=== PATIENT | male | born 1945 | race Caucasian/White ===

== ENCOUNTER → 2020-12-18 | Outpatient (CLI) | payer OTHER ==
[2020-12-18 19:35] LABS: BASOPHILS ABSOLUTE AUTO 0.05 K/mm3 (0.00-0.23); BASOPHILS PERCENT AUTO 1 % (0-2); EOSINOPHILS ABSOLUTE AUTO 0.16 K/mm3 (0.00-0.68); EOSINOPHILS PERCENT AUTO 3 % (0-6); Hemoglobin 16.1 g/dL (13.5-17.5); IMMATURE GRAN ABSOLUTE AUTO 0.01 K/mm3 (0.00-0.10); IMMATURE GRAN PERCENT AUTO 0 % (0-1); LYMPHOCYTES ABSOLUTE AUTO 1.71 K/mm3 (0.84-5.20); LYMPHOCYTES PERCENT AUTO 28 % (21-46); MONOCYTES ABSOLUTE AUTO 0.72 K/mm3 (0.16-1.47); MONOCYTES PERCENT AUTO 12 % (4-13); Mean Corpuscular HGB Conc 34.3 g/dL (31.5-36.5); Mean Corpuscular Volume 93 fL (80-100); Mean Platelet Volume 10.1 fL (9.1-12.4); NEUTROPHILS ABSOLUTE AUTO 3.44 K/mm3 (1.96-9.15); NEUTROPHILS PERCENT AUTO 57 % (41-73); Platelet Count 185 K/mm3 (150-400); RDW Coefficient Variation 12.8 % (11.7-14.2); RDW Standard Deviation 44.1 fL (35.1-46.3); Red Blood Cell Count 5.03 M/mm3 (4.30-5.90); White Blood Cell Count 6.09 K/mm3 (4.00-11.30)
[2020-12-18 20:20] LABS: Alanine Aminotransfer (ALT/SGP 29 U/L (12-78); Albumin, Blood 3.8 g/dL (3.4-5.0); Albumin/Globulin Ratio 1.3 (0.8-1.8); Alk Phos 99 U/L (50-136); Anion Gap 9 mmol/L (6-16); Aspartate Aminotrans (AST/SGOT 21 U/L (12-37); Bilirubin, Total 0.6 mg/dL (0.1-1.0); Blood Urea Nitrogen 28 mg/dL (8-24); Bun/Creatinine Ratio 28.6 (12.0-20.0); CHOL/HDL RATIO 2.6; CO2, Blood 26 mmol/L (21-32); Calcium, Blood 8.8 mg/dL (8.5-10.1); Chloride, Blood 107 mmol/L (98-108); Cholesterol 198 mg/dL (50-200); Creatinine, Blood 0.98 mg/dL (0.60-1.20); Glomerular Filtration Rate >60 (60-); Glucose, Blood 107 mg/dL (70-99); HDL Cholesterol 76 mg/dL (>39); LDL/HDL RATIO 1.1; Low Density Lipoprotein Chol 86 mg/dL (0-110); Potassium, Blood 4.2 mmol/L (3.5-5.5); Sodium, Blood 142 mmol/L (136-145); Thyroid Stimulating Hormone 0.813 uIU/mL (0.360-4.800); Total Protein, Blood 6.8 g/dL (6.4-8.2); Triglycerides 178 mg/dL (30-160); Very Low Density Lipoprot Chol 35 mg/dL (6-32)
== END ==
LOC: LAB SHORT 18:12 → PLD 18:12
PROVIDERS: Registered Nurse
DX: Z11.59 Encounter for screening for other viral diseases (principal); E11.9 Type 2 diabetes mellitus without complications; E78.5 Hyperlipidemia, unspecified; R53.83 Other fatigue
CPT/HCPCS: 80053; 80061; 83036; 84443; 85025; 86803

== ENCOUNTER 2023-09-28 11:52 | Day surgery (SDC) | payer OTHER ==
[~2023-09-28] VITALS: Ht 175.3 cm; Wt 55.7 kg
[~2023-09-28 11:52] MED LIST: ATOR10; Aspir 8181 MG PO; LEVSOD100 PO; LIDO700A20 TOP; MELA3; METFORMIN ER1000 M1 PO; NOVOLOG FL100 UNIT/3 SC; OMEP20ER PO; VITAMIN D325 MC3; VOLTAREN ARTHRI20 GM TOP
[2023-09-28] MEDS ORDERED: ALOGLIPTIN25 M1 (12:18)
[2023-09-28] MEDS ORDERED: TAMS.4ER PO (12:18)
--- NOTE | 2023-09-28 12:30 | NUR ---
09/28/23 1230 Claudia Guzmán AT 1216 PLEDGET AT 1217
[2023-09-28 13:28] VITALS: BP 118/70
== END 2023-09-28 13:43 | disposition home or self-care (01) ==
LOC: ORSCSDS 11:52
PROVIDERS: Student in an Organized Health Care Education/Training Program
PROC: 08RJ3JZ Replacement of Right Lens with Synthetic Substitute, Percutaneous Approach (ICD-10-PCS; principal; 2023-09-28 13:45)
DX: E11.36 Type 2 diabetes mellitus with diabetic cataract (principal); H25.13 Age-related nuclear cataract, bilateral; H21.81 Floppy iris syndrome; Z85.51 Personal history of malignant neoplasm of bladder; E78.5 Hyperlipidemia, unspecified; Z79.4 Long term (current) use of insulin; Z87.891 Personal history of nicotine dependence; Z79.84 Long term (current) use of oral hypoglycemic drugs; Z79.899 Other long term (current) drug therapy
CPT/HCPCS: 82947; J2250; J3010; J7040; V2632

== ENCOUNTER 2023-10-19 07:39 | Day surgery (SDC) | payer OTHER ==
[~2023-10-19] VITALS: Ht 144.8 cm; Wt 56.5 kg
[~2023-10-19 07:39] MED LIST changes: +ALOGLIPTIN25 M1; +TAMS.4ER PO
--- NOTE | 2023-10-19 08:11 | NUR ---
10/19/23 0811 ANN BYRNE: [id number] REYNOLD: [id number]
[2023-10-19 09:23] VITALS: BP 113/75
== END 2023-10-19 09:38 | disposition home or self-care (01) ==
LOC: ORSCSDS 07:39
PROVIDERS: Student in an Organized Health Care Education/Training Program
PROC: 08RK3JZ Replacement of Left Lens with Synthetic Substitute, Percutaneous Approach (ICD-10-PCS; principal; 2023-10-19 09:00)
DX: E11.36 Type 2 diabetes mellitus with diabetic cataract (principal); H25.12 Age-related nuclear cataract, left eye; H21.81 Floppy iris syndrome; Z96.1 Presence of intraocular lens; Z85.51 Personal history of malignant neoplasm of bladder; E78.5 Hyperlipidemia, unspecified; Z87.891 Personal history of nicotine dependence; Z79.84 Long term (current) use of oral hypoglycemic drugs; Z79.82 Long term (current) use of aspirin; Z79.4 Long term (current) use of insulin; Z79.899 Other long term (current) drug therapy
CPT/HCPCS: 82947; J2250; J3010; J7040; V2632

== ENCOUNTER 2025-07-31 13:52 | Emergency (ER) | payer OTHER ==
[~2025-07-31] VITALS: Ht 175.3 cm; Wt 54.4 kg
[2025-07-31 14:12] VITALS: BP 135/86
[2025-07-31] MEDS ORDERED: OXYC5 PO (16:17)
== END 2025-07-31 17:03 | disposition home or self-care (01) ==
LOC: ER 13:52
DX: S22.078A Other fracture of T9-T10 vertebra, initial encounter for closed fracture (principal); X50.1XXA Overexertion from prolonged static or awkward postures, initial encounter; Z79.82 Long term (current) use of aspirin; Z79.84 Long term (current) use of oral hypoglycemic drugs; Z79.890 Hormone replacement therapy; Z79.899 Other long term (current) drug therapy; Z91.0120 Allergy to eggs, unspecified
CPT/HCPCS: 72070; 99283-25; A9270